=== PATIENT | female | born 1990 | race Caucasian/White ===

== ENCOUNTER 2019-09-25 06:31 | Inpatient (IN) | payer OTHER, SELFPAY ==
[2019-09-25] VITALS (40 sets, daily range): BP systolic 75–170; BP diastolic 47–152; PULSE 63–125; RESP 16–18; TEMP 36.6–36.9; O2SAT 99–100; BMI 44.3
--- NOTE | 2019-09-25 06:31 | LDADM ---
This patient, Genesis Garcia, was admitted to Labor/Delivery/Recovery 106 on 09/25/19 at 06:31. Plans for labor, pain management and were discussed with patient. Patient/family oriented to hospital policies and general routines including ID bracelet, bed and alarms, visiting hours, pain management, procedures, bathroom and other care routines, personal items, smoking policy, room service/diet and guest tray routines, security routines, and visiting hours. Patient/Family are encouraged to report perceived risks to care and to ask questions if they do not understand what they are told or what they should do. See OBIX for further documentation.
[2019-09-25] MEDS: LACTATED RINGERS 1,000 ML 125 ML IV CONT ×2 (06:55→07:36)
--- NOTE | 2019-09-25 07:19 | WPDOBADMIT ---
Obstetrics - Admit Note Admission Note: record reviewed. No pertinent additions to the history and/or any subsequent changes in the physical findings that are not consistent with the expected course of the were found.hx of previous section with successful TOLAC, pt arrives 7 cm and in active labor, anticipate vaginal delivery Additions to the history and/or subsequent changes in the physical findings follow. None.
[2019-09-25 07:29] LABS: Basophils Percent Auto 0.4 % (0.2-1.2); Eosinophils Absolute Auto 0.1 K/mm3 (0-0.3); Hematocrit 40.6 % (37.0-47.0); Hemoglobin 13.8 g/dL (12.0-15.0); Immature Granulocyte Absolute 0.08 K/mm3 (0.00-0.031); Immature Granulocyte Percent A 0.9 % (0-0.5); Lymphocytes Absolute Auto 1.55 K/mm3 (0.9-3.2); Lymphocytes Percent Auto 17.3 % (18.3-44.2); Mean Corpuscular Hemoglobin 32.3 pg (26-34); Mean Corpuscular Volume 95.1 fl (80-100); Mean Platelet Volume 10.9 fl (7.4-10.4); Monocytes Absolute Auto 0.6 K/mm3 (0.1-0.6); Monocytes Percent Auto 6.9 % (2.6-8.5); Neutrophils Absolute Auto 6.6 K/mm3 (1.3-6.7); Neutrophils Percent Auto 73.5 % (45.5-73.1); Platelet Count Result 174 k/mm3 (150-375); Red Blood Count 4.27 M/mm3 (4.2-5.4)
--- NOTE | 2019-09-25 08:43 | PM.OBPRVD ---
OB - Delivery Note Procedure Delivery date: 09/25/19 Procedure: vaginal delivery Intrapartal events: None Delivery augmentation: rupture of membranes Delivery monitor: external FHT and external uterine Laceration description: None Specimen: No Estimated blood loss (mL): 85 Anesthesia type: Epidural Disposition: other () Baby Date of : 09/25/19 Time of : 08:32 Weeks of gestation at delivery: 38 Infant gender: Male Weight (pounds): 6 Weight (ounces): 0 presentation: vertex position: Left Occiput Anterior cord vessel description: 3 Vessels and Clamped/Cut score one minute: 8 score ten minutes: 9 Narrative: mother and baby in stable condition, skin to skin
[2019-09-25] MEDS: OXYTOCIN 30 UNITS/NS 500 ML 30 UNITS/500 ML BAG 125 UNITS IV CONT (09:11)
[2019-09-25] MEDS: IBUPROFEN 600 MG TABLET PO ×2 (09:50→23:20)
--- NOTE | 2019-09-25 11:34 | PC.NURSE ---
Patient transferred to post room #284 via wheelchair. Support person present. Oriented to unit, room, information board, rooming in, admission packet and security measures. Patient verbalizes understanding.
--- NOTE | 2019-09-25 12:31 | PC.NURSE ---
Patient assessed when she arrived on the unit, assessment time in the computer should be 1135 not 1231. Assessment all charted under 1231, I forgot to edit the time.
[2019-09-25] MEDS: ACETAMINOPHEN 325 MG TABLET 650 MG PO (13:00)
[2019-09-26 03:59] LABS: Hematocrit 35.9 % (37.0-47.0); Hemoglobin 11.9 g/dL (12.0-15.0)
[2019-09-26 07:07] LABS: Rapid Plasma Reagin Non-Reactive (NonReactive)
[2019-09-26 08:10] VITALS: BP 138/87; PULSE 62; RESP 18; TEMP 36.4; O2SAT 99
--- NOTE | 2019-09-26 08:14 | P.PNOB_ITS ---
OB - PN: Subj Subjective Date/time seen: 09/26/19 08:14 OB - PN: Obj Data Labs CBC & Chem 7: 09/26/19 03:51 Labs: Laboratory Results - last 24 hr 09/25/19 09/26/19 06:54 03:51 Hgb 11.9 L Hct 35.9 L RPR Non-reactive OB - PN A/P Assessment and Plan (1) Vaginal delivery: Code(s): O80 - Encounter for full-term uncomplicated delivery Status: Acute Plan day: 1 Plan: routine care and discharge home (RTC in 4 weeks) Time Spent With Patient Time: Total time spent is greater than 50% in coordination of care (as docum ented) at patient's floor/unit and/or counseling patient: Time with patient: less than 15 minutes Review of Systems Review of Systems: All systems reviewed & are unremarkable except as noted in HPI and below Exam Narrative: Exam Narrative: Fundus firm and vaginal flow controlled. Const: General: comfortable Chest: Breast/axilla inspection: normal inspection of the breasts Resp: Effort & Inspection: normal respiratory effort Cardio: Rate: regular rate Psych: Appearance: grossly normal Affect: normal affect Attitude: cooperative Judgement: Good judgement present (Psych)
--- NOTE | 2019-09-26 08:16 | PM.OBDSVD ---
DS: Admitting Diagnosis Admitting Diagnosis Admitting Diagnosis: Encounter for full-term uncomplicated delivery OB - DS: Summary OB Procedures : None OB Procedures Intrapartum: Spontaneous Vag Delivery OB Procedures: : None Time Spent with Patient Time attestation: Total time spent providing and/or coordinating discharge services: DS: Data Data Completed and Pending Labs on day of discharge: Labs from last 24 hours 09/26/19 09/25/19 03:51 06:54 Hgb 11.9 L Hct 35.9 L RPR Non-reactive Discharge Plan Discharge Attending physician on discharge: Laxmi Barreto Discharging Clinician: Sarah Vasquez Patient Disposition: Home, Self-Care Activity: pelvic rest Diet: as tolerated Patient Instructions: Antibiotic Form, How to Stop Smoking (GEN), Cigarette Smoking and Your Health (GEN), Secondhand Smoke Exposure in Children (GEN) Stand Alone Forms: General Discharge Information Follow-up/Referrals: Laxmi Barreto, EVARISTOM [Primary Care Provider] - Discharge Medications: Continued PNV cmb#95-ferrous fumarate-FA [] 28 mg iron- 800 mcg Tablet 1 tablet PO DAILY RF: 0 Date of admission: 09/25/19 06:31 Primary Care Provider: Laxmi Barreto Admitting Provider: Isis Humphries Attending physician on admission: Isis Humphries
[2019-09-26] MEDS: MULTIVIT/MIN/PREN/FOL AC/IRON TABLET 1 TAB PO (08:25)
[2019-09-26] MEDS: IBUPROFEN 600 MG TABLET PO (08:25)
[2019-09-26] MEDS: LANOLIN (LANSINOH) 7.5 GM CREAM 1 APPLIC TOPICAL (08:26)
--- NOTE | 2019-09-26 09:15 | PC.NURSE ---
Consulted with patient, mother reports infant is latching without difficulties or discomfort. Mother reports she breastfed other two children with varying success for several weeks. Mother states she is determined to breastfeed this longer. Reviewed infant feeding cues, frequencies, duration of feedings, feeding elimination flow sheet, and signs of adequate intake. Demonstrated stimulation techniques to wake infant for feeding. Assisted with to breast. Reviewed positioning/alignment in football, holding breast in C hold and guided asymmetrical latch on. Discussed rational for each. Infant was able to latch correctly. Infant nursed eagerly, with steady draws and frequent swallowing noted. Reviewed signs of a correct latch, effective nursing and suck swallow ratio. Infant would pull back during feeding to shallow latch. Demonstrated how to adjust latch more deeply while feeding and to hold breast during feeding to assist with maintaining deep latch. Suggested to stimulate to keep infant awake and nursing effectively for increased intake. was to maintain latch without discomfort to mother. Nipple care reviewed. Mother is feeding as required and waking infant to feed if needed. Infant is currently meeting outcomes for weight, output, jaundice and feeding frequencies. Mother states she feels confident to continue effective at home. Reviewed transition to breast milk, signs of adequate intake, and engorgement/relief. Instructed to call ICP if intake/output less than required. Reviewed regular medications mother is taking. Information provided per Anny. Reviewed community resources on the [facility] website and in the Mom/Baby guide. Information on outpatient services provided. Mother has no further questions at this time.
--- NOTE | 2019-09-26 12:37 | PC.NURSE ---
Patient viewed the discharge video Mother & Baby Care, The First Two Weeks . Patient was given the opportunity and encouraged to ask questions. Patient verbalized understanding of information shared and has been given the mother/baby guide for home reference.
== END 2019-09-26 13:45 | disposition home or self-care (01) | DRG 560 ==
LOC: ANHLDR 06:46 → ANHOB2 11:41
PROVIDERS: Admitting Provider Obstetrics & Gynecology; PCP Advanced Practice Midwife; Visit Provider Obstetrics & Gynecology
DX: O34.211 Maternal care for low transverse scar from previous cesarean delivery (principal); Z37.0 Single live birth; Z3A.37 37 weeks gestation of pregnancy; O43.113 Circumvallate placenta, third trimester
CPT/HCPCS: 36415; 85014; 85018; 85025; 86592; 86850; 86900; 86901; A9270; J2590; J2795; J3010; J7120

== ENCOUNTER 2021-05-16 16:57 | Outpatient (CLI) | payer OTHER, SELFPAY ==
--- NOTE | ~2021-05-16 | US_ITS ---
EXAMINATION: US OB BPP wo non-stress DATE: 05/16/2021 18:20 NURSE CHARGE RN INDICATION: decelerations TECHNIQUE: Real-time transabdominal obstetric ultrasound. FINDINGS: No prior studies for comparison. There is a single living fetus in vertex presentation. The placenta is anterior without placenta pre via. cardiac activity and movement is noted with a heart rate of 126 beats per minute. Biophysical profile: breathin of 2 movement: 2 of 2 tone: 2 of 2 Amniotic flud pocket: 2 of 2 Total score: 6 of 8 IMPRESSION: 1. Single living intrauterine in vertex presentation. 2: Total biophysical profile score of 6/8. Reviewed, dictated and finalized at location A. E CHARGE RN
[2021-05-16 17:11] VITALS: BP 120/68; PULSE 83; RESP 20; TEMP 36.7
[2021-05-16 17:38] VITALS: BP 120/68; PULSE 83
--- NOTE | 2021-05-16 18:34 | PC.NURSE ---
BPP 08/19.
== END 2021-05-16 19:40 | disposition home or self-care (01) ==
LOC: ANHOBOP 17:01 → ANHOBPP 17:01
PROVIDERS: PCP Advanced Practice Midwife; Visit Provider Obstetrics & Gynecology
DX: O36.8390 Maternal care for abnormalities of the fetal heart rate or rhythm, unspecified trimester, not applicable or unspecified (principal); Z3A.00 Weeks of gestation of pregnancy not specified
CPT/HCPCS: 59025; 76819; 99199

== ENCOUNTER 2021-05-31 11:02 | Inpatient (IN) | payer OTHER, SELFPAY ==
[2021-05-31] VITALS (148 sets, daily range): BP systolic 63–145; BP diastolic 38–105; PULSE 59–196; RESP 18; TEMP 36.4–36.9; O2SAT 87–100; BMI 41.8
[2021-05-31 12:07] LABS: Basophils Percent Auto 0.6 % (0.2-1.2); Eosinophils Absolute Auto 0.1 K/mm3 (0-0.3); Eosinophils Percent Auto 1.2 % (0-4.4); Hematocrit 33.6 % (37.0-47.0); Hemoglobin 10.9 g/dL (12.0-15.0); Immature Granulocyte Absolute 0.04 K/mm3 (0.00-0.031); Immature Granulocyte Percent A 0.6 % (0-0.5); Lymphocytes Absolute Auto 1.45 K/mm3 (0.9-3.2); Lymphocytes Percent Auto 21.8 % (18.3-44.2); Mean Corpuscular HGB Conc 32.4 g/dl (32-36); Mean Corpuscular Hemoglobin 34.8 pg (26-34); Mean Corpuscular Volume 107.3 fl (80-100); Monocytes Absolute Auto 0.4 K/mm3 (0.1-0.6); Monocytes Percent Auto 6.3 % (2.6-8.5); Neutrophils Absolute Auto 4.6 K/mm3 (1.3-6.7); Neutrophils Percent Auto 69.5 % (45.5-73.1); Platelet Count Result 173 k/mm3 (150-375); Red Blood Count 3.13 M/mm3 (4.2-5.4); Red Cell Distribution Width 14.2 % (11.5-14.5); White Blood Count 6.6 K/mm3 (4.5-10.0)
[2021-05-31] MEDS: LACTATED RINGERS 1,000 ML 125 ML IV CONT ×2 (12:13→19:30)
[2021-05-31] MEDS: OXYTOCIN 30 UNITS/NS 500 ML 30 UNITS/500 ML BAG IV CONT (12:18)
--- NOTE | 2021-05-31 12:20 | LDADM ---
This patient, Genesis Garcia, was admitted to Labor/Delivery/Recovery 103 on 05/31/21 at 11:02. Plans for labor, pain management and were discussed with patient. Patient/family oriented to hospital policies and general routines including ID bracelet, bed and alarms, visiting hours, pain management, procedures, bathroom and other care routines, personal items, smoking policy, room service/diet and guest tray routines, security routines, and visiting hours. Patient/Family are encouraged to report perceived risks to care and to ask questions if they do not understand what they are told or what they should do. See OBIX for further documentation.
[2021-05-31 12:21] LABS: Alanine Aminotransferase 19 U/L (4-35); Albumin Level 3.4 g/dL (3.5-5.1); Alkaline Phosphatase 347 U/L (38-126); Anion Gap 2 mmol/L (8-16); Aspartate Amino Transferase 21 U/L (14-36); Bilirubin,Total 0.2 mg/dL (0.2-1.3); Blood Urea Nitrogen 9 mg/dL (7-17); Calcium 8.2 mg/dL (8.4-10.2); Carbon Dioxide 23 mmol/L (22-30); Chloride 108 mmol/L (98-107); Estimated CRCL calculation 156 ml/min; Estimated Glomerular Filt Rate > 60; Glucose 93 mg/dL (65-110); Potassium 3.8 mmol/L (3.4-5.0); Sodium 133 mmol/L (137-145); Uric Acid 4.4 mg/dL (2.5-7.5)
[2021-05-31 12:28] LABS: Amphetamine Screen Urine Negative (Negative); Barbiturate Screen Urine Negative (Negative); Benzodiazepines Screen Urine Negative (Negative); Cannabinoid Screen Urine Positive (Negative); Cocaine Screen Urine Negative (Negative); Methadone Screen Urine Negative (Negative); Opiate Screen Urine Negative (Negative); Phencyclidine Screen Urine Negative (Negative)
--- NOTE | 2021-05-31 13:45 | WPDANESEPP ---
Anes - Eval Pre Procedure Date/Time: 05/31/21 13:45 Pre Op Diagnosis: Induction of Labor Patient Data Age: 31 Gender: F Height: 1.57 m Weight: 103.6 kg Allergies Allergy/AdvReac Type Severity Reaction Status Date / Time No Known Allergies Allergy Verified 09/13/19 15:05 Home Medications Medication Instructions Recorded Confirmed Type PNV cmb#95-ferrous fumarate-FA 1 tablet PO DAILY 09/13/19 05/16/21 History [] omeprazole magnesium [Prilosec] 10 mg PO DAILY PRN 05/16/21 05/16/21 History Laboratory Tests 05/31/21 05/31/21 05/31/21 11:52 11:52 11:57 WBC 6.6 K/mm3 K/mm3 (4.5-10.0) RBC 3.13 M/mm3 L M/mm3 (4.2-5.4) Hgb 10.9 g/dL L g/dL (12.0-15.0) Hct 33.6 % L % (37.0-47.0) MCV 107.3 fl H fl (80-100) MCH 34.8 pg H pg (26-34) MCHC 32.4 g/dl g/dl (32-36) RDW 14.2 % % (11.5-14.5) Plt Count 173 k/mm3 k/mm3 (150-375) MPV 10.0 fl fl (7.4-10.4) Immature Gran % (Auto) 0.6 % H % (0-0.5) Neut % (Auto) 69.5 % % (45.5-73.1) Lymph % (Auto) 21.8 % % (18.3-44.2) Christian % (Auto) 6.3 % % (2.6-8.5) Eos % (Auto) 1.2 % % (0-4.4) Baso % (Auto) 0.6 % % (0.2-1.2) Lymph # (Auto) 1.45 K/mm3 K/mm3 (0.9-3.2) Christian # (Auto) 0.4 K/mm3 K/mm3 (0.1-0.6) Eos # (Auto) 0.1 K/mm3 K/mm3 (0-0.3) Baso # (Auto) 0.0 K/mm3 K/mm3 (0.0-0.1) Abs Immat Gran (auto) 0.04 K/mm3 H K/mm3 (0.00-0.031) Absolute Neuts (auto) 4.6 K/mm3 K/mm3 (1.3-6.7) Absolute Nucleated RBC 0.0 K/mm3 K/mm3 (0.0-0.012) Nucleated RBC % 0.0 % % (0.0-0.2) Sodium Potassium Chloride Carbon Dioxide Anion Gap BUN Creatinine Estim Creat Clear Calc Estimated GFR Glucose Uric Acid Calcium Total Bilirubin AST ALT Alkaline Phosphatase Total Protein Albumin Urine Opiates Screen Negative (Negative) Urine Methadone Screen Negative (Negative) Ur Barbiturates Screen Negative (Negative) Ur Phencyclidine Scrn Negative (Negative) Ur Amphetamine Screen Negative (Negative) U Benzodiazepines Scrn Negative (Negative) Urine Cocaine Screen Negative (Negative) U Cannabinoids Screen Positive A (Negative) RPR Pending 05/31/21 11:59 WBC RBC Hgb Hct MCV MCH MCHC RDW Plt Count MPV Immature Gran % (Auto) Neut % (Auto) Lymph % (Auto) Christian % (Auto) Eos % (Auto) Baso % (Auto) Lymph # (Auto) Christian # (Auto) Eos # (Auto) Baso # (Auto) Abs Immat Gran (auto) Absolute Neuts (auto) Absolute Nucleated RBC Nucleated RBC % Sodium 133 mmol/L L mmol/L (137-145) Potassium 3.8 mmol/L mmol/L (3.4-5.0) Chloride 108 mmol/L H mmol/L (98-107) Carbon Dioxide 23 mmol/L mmol/L (22-30) Anion Gap 2 mmol/L L mmol/L (8-16) BUN 9 mg/dL mg/dL (7-17) Creatinine 0.50 mg/dL L mg/dL (0.7-1.0) Estim Creat Clear Calc 156 ml/min ml/min Estimated GFR > 60 (59 - ) Glucose 93 mg/dL mg/dL (65-110) Uric Acid 4.4 mg/dL mg/dL (2.5-7.5) Calcium 8.2 mg/dL L mg/dL (8.4-10.2) Total Bilirubin 0.2 mg/dL mg/dL (0.2-1.3) AST 21 U/L U/L (14-36) ALT 19 U/L U/L (4-35) Alkaline Phosphatase 347 U/L H U/L (38-126) Total Protein 6.0 g/dL L g/dL (6.3-8.2) Albumin 3.4 g/dL L g/dL (3.5-5.1) Urine Opiates Screen Urine Methadone Screen Ur Barbiturates Screen Ur Phencycl
[2021-05-31] MEDS: LACTATED RINGERS 1,000 ML 999 ML IV CONT ×2 (13:46→14:55)
--- NOTE | 2021-05-31 16:19 | WPDOBADMIT ---
Obstetrics - Admit Note Admission Note: record reviewed. No pertinent additions to the history and/or any subsequent changes in the physical findings that are not consistent with the expected course of the were found. MIOL for oligohydramnios, SVE 4/-2 AROM minimal amount of clear odorless fluid Additions to the history and/or subsequent changes in the physical findings follow. None.
[2021-05-31] MEDS: miSOPROStol 200 MCG TABLET 800 MCG (20:19)
--- NOTE | 2021-05-31 20:23 | P.PCNOB_ITS ---
OB - Delivery Note Procedure Delivery date: 05/31/21 Procedure: vaginal delivery Events: Oligohydramnios Induction method: AROM and Per Pitocin Protocol Delivery monitor: External FHT and External Uterine Route of delivery: Episiotomy description: None Laceration Description: None Specimen: Yes Quantitative Blood Loss (ml): 100 Anesthesia type: Epidural Disposition: Floor [place] Baby Date of : 05/31/21 Time of : 20:10 Weeks of gestation at delivery: 37 Infant gender: Female Weight (pounds): 6 Weight (ounces): 0 presentation: vertex position: Left Occiput Anterior Placenta delivery description: Spontaneous Cord Vessel Description: 3 Vessels, Clamped/Cut and Delayed Cord Clamping Narrative: mother and baby skin to skin in stable condition
[2021-05-31] MEDS: OXYTOCIN 30 UNITS/NS 500 ML 30 UNITS/500 ML BAG 125 UNITS IV CONT (20:45)
--- NOTE | 2021-05-31 22:34 | OBPPTRN ---
Patient transferred to post room #285 via wheelchair. Support person present. Oriented to unit, room, information board, rooming in, admission packet and security measures. Patient verbalizes understanding.
[2021-05-31] MEDS: IBUPROFEN 600 MG TABLET PO (22:58)
[2021-06-01] MEDS: ACETAMINOPHEN 325 MG TABLET 650 MG PO ×2 (04:08→21:08)
[2021-06-01 04:30] VITALS: BP 116/67; PULSE 65; RESP 16; TEMP 36.6; O2SAT 97
[2021-06-01 05:05] LABS: Hematocrit 34.2 % (37.0-47.0)
--- NOTE | 2021-06-01 06:54 | PM.OBPNVD ---
OB - PN: Subj Subjective Date/time seen: 06/01/21 06:54 Patient comments: no complaints and pain well controlled baby status: doing well and nursing well [place] feeding status: exclusively breast feeding OB - PN: Obj Data Labs CBC & Chem 7: 06/01/21 04:00 05/31/21 11:59 Labs: Laboratory Results - last 24 hr 05/31/21 05/31/21 05/31/21 11:52 11:52 11:57 WBC 6.6 RBC 3.13 L Hgb 10.9 L Hct 33.6 L MCV 107.3 H MCH 34.8 H MCHC 32.4 RDW 14.2 Plt Count 173 MPV 10.0 Immature Gran % (Auto) 0.6 H Neut % (Auto) 69.5 Lymph % (Auto) 21.8 Frontier % (Auto) 6.3 Eos % (Auto) 1.2 Baso % (Auto) 0.6 Lymph # (Auto) 1.45 Frontier # (Auto) 0.4 Eos # (Auto) 0.1 Baso # (Auto) 0.0 Abs Immat Gran (auto) 0.04 H Absolute Neuts (auto) 4.6 Absolute Nucleated RBC 0.0 Nucleated RBC % 0.0 Sodium Potassium Chloride Carbon Dioxide Anion Gap BUN Creatinine Estim Creat Clear Calc Estimated GFR Glucose Uric Acid Calcium Total Bilirubin AST ALT Alkaline Phosphatase Total Protein Albumin Urine Opiates Screen Negative Urine Methadone Screen Negative Ur Barbiturates Screen Negative Ur Phencyclidine Scrn Negative Ur Amphetamine Screen Negative U Benzodiazepines Scrn Negative Urine Cocaine Screen Negative U Cannabinoids Screen Positive A Blood Type A Positive Antibody Screen Negative 05/31/21 06/01/21 11:59 04:00 WBC RBC Hgb 11.0 L Hct 34.2 L MCV MCH MCHC RDW Plt Count MPV Immature Gran % (Auto) Neut % (Auto) Lymph % (Auto) Frontier % (Auto) Eos % (Auto) Baso % (Auto) Lymph # (Auto) Frontier # (Auto) Eos # (Auto) Baso # (Auto) Abs Immat Gran (auto) Absolute Neuts (auto) Absolute Nucleated RBC Nucleated RBC % Sodium 133 L Potassium 3.8 Chloride 108 H Carbon Dioxide 23 Anion Gap 2 L BUN 9 Creatinine 0.50 L Estim Creat Clear Calc 156 Estimated GFR > 60 Glucose 93 Uric Acid 4.4 Calcium 8.2 L Total Bilirubin 0.2 AST 21 ALT 19 Alkaline Phosphatase 347 H Total Protein 6.0 L Albumin 3.4 L Urine Opiates Screen Urine Methadone Screen Ur Barbiturates Screen Ur Phencyclidine Scrn Ur Amphetamine Screen U Benzodiazepines Scrn Urine Cocaine Screen U Cannabinoids Screen Blood Type Antibody Screen OB - PN A/P Plan day: 1 Plan: routine care Time Spent With Patient Time: Total time spent is greater than 50% in coordination of care (as documented) at patient's floor/unit and/or counseling patient: Review of Systems Review of Systems: All systems reviewed & are unremarkable except as noted in HPI and below Exam Const: General: cooperative, healthy appearing, comfortable and no acute distress Limitations: no limitations
[2021-06-01 08:51] VITALS: BP 112/44; PULSE 66; RESP 16; TEMP 36; O2SAT 100
[2021-06-01] MEDS: IBUPROFEN 600 MG TABLET PO ×2 (08:51→16:24)
[2021-06-01 12:00] VITALS: BP 110/72; PULSE 72; RESP 16; TEMP 35.9; O2SAT 100
--- NOTE | 2021-06-01 12:40 | WPDANLDPN2 ---
Anes-Prog Note L&D Date/Time: 06/01/21 12:40 Comfortable throughout: labor and delivery Neuraxial method: epidural Epidural/Spinal procedure site: clean & non-tender Neuro status: Neuro function grossly intact. Cardiovascular status: normal Respiratory status: normal Airway patency: baseline Mental status: baseline Post-Op hydration status: normal Vital Signs: Last Vital Signs Temp 36.0 C L 06/01/21 08:51 Pulse 66 06/01/21 08:51 Resp 16 06/01/21 08:51 BP 112/44 L 06/01/21 08:51 Pulse Ox 100 06/01/21 08:51 Pain score (VAS): 03/25 I/O: Intake & Output 05/31/21 06/01/21 06/01/21 23:59 07:59 15:59 Intake Total 500 Output Total 100 Balance 400 Post-procedural complaints: none Patient feedback: Patient satisfied with anesthetic care.
--- NOTE | 2021-06-01 13:28 | PCCCNOTE ---
Received referral for marijuana during . Mother and baby both positive for marijuana on urine drug screen. Met with pt. She confirms marijuana use. She obtains from local dispensary. She lives with her significant other, Kentrell Mohan and their 3 other children. She indicates her mother watching children during hospitalization for delivery of baby. She indicates late care as took several tests beginning in November 2020, which were all negative, then made appointment with once began feeling fluttering. She was unable to get appointment with office for about 6 weeks to confirm . She states having all needed items to care for baby at return home. She states reporting a neighbor to [facility] last year; she also had a case with [facility] at this time which she states being closed. Have reported pt. situation to [facility] and information being kept on file; does not meet criteria for investigation. (Intake#[id number]). Spoke to RN regarding above. No further concerns indicated at this time.
[2021-06-01 16:24] VITALS: BP 110/70; PULSE 66; RESP 16; TEMP 36.2; O2SAT 100
[2021-06-01 19:50] VITALS: BP 132/74; PULSE 77; RESP 16; TEMP 36.7; O2SAT 100
--- NOTE | 2021-06-02 01:25 | PC.NURSE ---
2130 on 06/01/2021 Patient viewed the discharge video Mother & Baby Care, The First Two Weeks . Patient was given the opportunity and encouraged to ask questions. Patient verbalized understanding of information shared and has been given the mother/baby guide for home reference.
--- NOTE | 2021-06-02 08:31 | PM.OBPNVD ---
OB - PN: Subj Subjective Date/time seen: 06/02/21 08:31 Patient comments: no complaints and pain well controlled OB - PN: Obj Data Labs CBC & Chem 7: 06/01/21 04:00 05/31/21 11:59 OB - PN A/P Plan day: 2 Plan: routine care and discharge home Time Spent With Patient Time: Total time spent is greater than 50% in coordination of care (as documented) at patient's floor/unit and/or counseling patient: Review of Systems Review of Systems: All systems reviewed & are unremarkable except as noted in HPI and below Exam Const: General: cooperative, healthy appearing and comfortable
--- NOTE | 2021-06-02 08:33 | PM.OBDSVD ---
DS: Admitting Diagnosis Discharge Date 06/02/21 Admitting Diagnosis oligohydramnios, IOL OB - DS: Summary OB Procedures : None OB Procedures Intrapartum: Spontaneous Vag Delivery OB Procedures: : None Time Spent with Patient Time attestation: Total time spent providing and/or coordinating discharge services: DS: Data Data Completed and Pending Pending studies at discharge: Pending at discharge 05/31/21 20:15 Surgical [PTH] Routine Discharge Plan Discharge Attending physician on discharge: Isis Humphries Discharging Clinician: Laxmi Barreto Patient Disposition: Home, Self-Care Activity: pelvic rest Diet: regular Patient Instructions: Antibiotic Form Stand Alone Forms: General Discharge Information Follow-up/Referrals: Laxmi Barreto, EVARISTOM [Primary Care Provider] - Discharge Medications: Continued PNV cmb#95-ferrous fumarate-FA [] 28 mg iron- 800 mcg Tablet 1 tablet PO DAILY RF: 0 Date of admission: 05/31/21 11:02 Primary Care Provider: Laxmi Barreto Admitting Provider: Isis Humphries Attending physician on admission: Isis Humphries Condition: Stable
[2021-06-02] MEDS: IBUPROFEN 600 MG TABLET PO (08:45)
[2021-06-03 17:56] LABS: Rapid Plasma Reagin Non-Reactive (NonReactive)
== END 2021-06-02 12:07 | disposition home or self-care (01) | DRG 560 ==
LOC: ANHLDR 11:07 → ANHOB2 22:56
PROVIDERS: Admitting Provider Obstetrics & Gynecology; PCP Advanced Practice Midwife; Visit Provider Obstetrics & Gynecology
DX: O41.03X0 Oligohydramnios, third trimester, not applicable or unspecified (principal); Z37.0 Single live birth; Z3A.37 37 weeks gestation of pregnancy; O99.334 Smoking (tobacco) complicating childbirth; F17.210 Nicotine dependence, cigarettes, uncomplicated
CPT/HCPCS: 36415; 80053; 80307; 84112; 84550; 85014; 85018; 85025; 86592; 86850; 86900; 86901; 88307; A9270; J2590; J2795; J7120